=== PATIENT | male | born 1990 | race Caucasian/White ===

== ENCOUNTER 2020-10-08 15:53 | Emergency (ER) | payer OTHER ==
[~2020-10-08] VITALS: Ht 177.8 cm; Wt 72.7 kg
[2020-10-08 17:44] VITALS: BP 118/64; PULSE 70; TEMP 98
[2020-10-08 17:54] LABS: TRICYCLIC ANTIDEPRESS URINE NEGATIVE
== END 2020-10-08 18:09 | disposition home or self-care (01) ==
LOC: COL.ER 15:53
PROVIDERS: Nurse Practitioner
DX: S61.210A Laceration without foreign body of right index finger without damage to nail, initial encounter (principal); F17.210 Nicotine dependence, cigarettes, uncomplicated; Z23 Encounter for immunization; W26.8XXA Contact with other sharp object(s), not elsewhere classified, initial encounter; Y99.0 Civilian activity done for income or pay